=== PATIENT | female | born 1990 | race Caucasian/White ===

== ENCOUNTER 2024-11-30 16:07 | Emergency (ER) | payer OTHER, SELFPAY ==
[2024-11-30 16:08] VITALS: BP 123/88
[2024-11-30 17:10] LABS: Hematocrit 37.1 % (37.0-47.0); Hemoglobin 12.0 g/dL (12.0-16.0); Mean Corp Hgb Conc. 32.3 g/dL (33.0-37.0); Mean Corpuscular Volume 84.7 fL (81.0-99.0); Nucleated Red Blood Cells % 0 %; Platelet Count 287 10^3/uL (130-400); Red Cell Dist. Width 13.1 % (11.5-14.5)
[2024-11-30] MEDS: NSS 1000 IV (17:34)
[2024-11-30 17:38] LABS: HCG, Serum Qualitative Screen Negative
[2024-11-30 17:41] LABS: ALT (SGPT) 15 U/L (0-35); AST (SGOT) 18 U/L (14-36); Albumin 4.5 g/dl (3.5-5.0); Alkaline Phosphatase 52 U/L (38-126); Blood Urea Nitrogen 14 mg/dl (7-17); Calcium 9.8 mg/dl (8.4-10.2); Carbon Dioxide 25 mmol/L (22-30); Chloride 105 mmol/L (98-107); Glucose 106 mg/dl (70-99); Lipase 88 U/L (23-300); Potassium 4.0 mmol/L (3.5-5.1); Sodium 135 mmol/L (135-145); Total Protein 7.4 g/dl (6.3-8.2); eGFR > 60.00
[2024-11-30 18:01] LABS: Urine Character Slightly Cloudy (Clear)
[2024-11-30] MEDS: ZOFRAN 4 MG IV (18:45)
[2024-11-30 19:15] LABS: Urine Red Blood Cell 0-2 /HPF (0-2); Urine Squamous Cell >30 /LPF (Few); Urine White Cell 0-2 /HPF (0-5)
[2024-11-30] MEDS: TORADOL 15 MG IV (19:43)
--- NOTE | 2024-11-30 20:29 | ED.GENMED ---
History of Present Illness
General
Chief Complaint: Abdominal Symptoms
Source: patient
Exam Limitations: none
Time Seen by Provider: 11/30/24 17:20
History of Present Illness
History of Present Illness:
Patient with 2 complaints. She started with posterior neck pain 2 weeks ago. Nontraumatic. Not associated with nausea or vomiting. Some posterior headache with this. She had no trauma at that time. No whiplash injury. No chiropractic
manipulation. No distal numbness tingling weakness or disequilibrium. Over the last week she has developed GI symptoms including nausea vomiting and diarrhea. She denies severe abdominal pain. No unusual exposure or travel history. No recent
antibiotics.
Past History
Past History
ED Past Medical History: Psychiatric (Anxiety/depression)
ED Past Surgical History: Other ([place] teeth)
Social History
Living: with family
Review of Systems
Review of Systems
Constitutional: Denies fever
Respiratory: Reports no symptoms
Cardiac: Reports no symptoms
Phy Exam
Physical Exam
Physical Exam:
GENERAL: Alert and oriented in no apparent distress
EYE: Orbits normal.
NECK: Supple, no obvious paracervical tenderness. No spinal tenderness. No swelling. No carotid bruit.
ENT: Pharynx without erythema
CARDIAC: Regular rate and rhythm without any obvious murmurs.
LUNGS: Clear breath sounds,normal
ABDOMEN: Soft, minimal epigastric tenderness. No rebound or guarding no mass or hernia
NEUROLOGICAL: Alert and oriented , speech normal. No facial droop. Good range of motion of the neck. Good upper and lower extremity strength.
SKIN: Warm and dry, no rash or lesion, no discoloration, skin intact.
MUSCULOSKELETAL: No edema,no deformity.Good color
PSYCH: Normal and appropriate interaction.
Course
Orders/Labs/Results
Orders:
Orders
11/30/24 17:01
Test Result ONCE
11/30/24 17:03
Complete Blood Count/With Diff Urgent
Comprehensive Metabolic Panel Urgent
HCG, Serum Qualitative Screen Urgent
Comment: Notify provider if positive test present
Lipase Urgent
Urinalysis Reflex To Culture Urgent
Date Specimen was Collected: 11/30/24
Time Specimen was Collected: 17:01
Urine Microscopic Reflex Cult Urgent
11/30/24 17:31
CT Abd/Pel (IV only)-DH only Urgent
Comment:
Reason For Exam: Abdominal pain nausea vomiting
11/30/24 17:32
CT Head W/o Iv Contrast Urgent
Comment:
Reason For Exam: Headache neck pain nausea vomiting
0.9% Sodium Chloride 1000 ml [Nss] 1,000 ml IV BOLUS
11/30/24 18:17
Electrocardiogram (*1) Stat
Reason for Study: Abdominal Pain
EKG- Treatment ONCE
11/30/24 18:33
Ondansetron Injectable [Zofran] 4 mg IV NOW STA
11/30/24 19:24
CT Cervical Spine W/o Iv Contr Urgent
Comment:
Reason For Exam: Posterior neck pain
Ketorolac [Toradol] 15 mg IV NOW STA
Abnormal Lab Results
11/30/24
17:03
WBC 11.2 H 10^3/uL
(4.8-10.8)
MCHC 32.3 L g/dL
(33.0-37.0)
MPV 11.0 H fL
(7.4-10.4)
Absolute Neuts (auto) 8.9 H 10^3/uL
(1.4-6.5)
Neutrophils % 79.6 H %
(42.2-75.2)
Lymphocytes % 14.5 L %
(20.5-51.1)
Glucose 106 H mg/dl
(70-99)
Urine Ketones 3+ A
(Negative)
Ur Occult Blood Reflex 1+ A
(Negative)
Urine Bacteria (Reflex) Few A
(Negative)
Urine Albumin (Reflex) 1+ A
(Neg - Trace)
11/30/24 17:03
11/30/24 17:03
Vital Signs
Initial and Last Documented VS:
Initial Vital Signs
Temp Pulse Resp BP Pulse Ox
98.3 F 83 20 123/88 98
11/30/24 16:08 11/30/24 16:08 11/30/24 16:08 11/30/24 16:08 11/30/24 16:08
Last Documented Vital Signs
Temp Pulse Resp BP Pulse Ox
98.3 F 83 20 123/88 98
11/30/24 16:08 11/30/24 16:08 11/30/24 16:08 11/30/24 16:08 11/30/24 16:08
MDM/Problems Addressed
Differential Diagnosis Includes:
I cannot put her posterior neck symptoms together with her abdominal symptoms. She is not describing anything that would be suspicious of her vertebral dissection or thrombus. She has no acute neurologic symptoms no disequilibrium no gait issues
no nystagmus no trauma. She has multiple degenerative changes and some spinal canal stenosis by CT. She is clinically very stable and nontoxic. Her abdominal workup is unremarkable except for mild colitis. Symptomatic treatment stool culture and
follow-up
*Radiology
Radiology exam reviewed: radiology read reviewed (Colitis. Degenerative changes and spinal stenosis and foraminal narrowing at various levels by CT)
*Pulse Oximetry
SaO2: 98
Oxygen Mode of Delivery: Room air
Patient hypoxic: no
*EKG
Interpreted by ED Provider?: Yes
Interpretation: normal
Comparison EKG: no comparison EKG present
Heart Rate: 69
Rate: normal
Rhythm: sinus
Jackman: normal axis
Interval: normal interval
QRS Pattern: normal QRS
Ischemia: no ischemia
*Critical Care Note
Total Time (30-74mins, 75-104mins- exclusive of procedures): Not Applicable
ED Attending Note
-
Portions of this chart may have been created with voice recognition software.� Occasional wrong word or��sound alike� substitutions may have occurred due to the inherent limitations of voice recognition software.
Discharge Plan
Departure
Patient Disposition: Home (Routine Discharge)
Date of Disposition: 11/30/24
Time of Disposition: 20:34
Patient with high blood pressure during this ER visit?: Yes
Discharge Problem:
Posterior neck pain, Cervical degenerative changes, Central canal stenosis cervical, C3-C4 foraminal narrowing, Colitis
Instructions: Colitis (DC), Neck pain - ED (DC), BLOOD PRESSURE
Prescriptions:
New
ondansetron 4 mg tablet,disintegrating
4 mg PO TIDPRN PRN (Reason: nausea/vomiting) Qty: 14 0RF
No Action
phenazopyridine 200 MG tablet
200 mg PO TID Qty: 6 0RF
sulfamethoxazole-trimethoprim 800 MG/160 MG tablet
1 tab PO BID Qty: 14 0RF
Referrals:
NONE,* [Family Provider, Internal Medicine]
Marck Hernandez MD [Active, Orthopedics] - Follow up in 5-7 days
Activity Restrictions/Additional Instructions:
A prescription for your nausea medication was sent to your pharmacy
Advil or Motrin for pain you can also add Tylenol
Light diet
Follow-up closely with your primary physician. Also follow-up the stool culture
Return sooner with increased pain vomiting increased neck pain numbness tingling weakness fever or any other concerning symptoms
Interventions
Interventions:
*Risk Screen - Suicide Last Done: 11/30/24 16:08
*General Assessment Last Done: 11/30/24 16:08
*Neglect/Abuse Screening Last Done: 11/30/24 16:08
[facility] Assessment Last Done: 11/30/24 17:01
Discharge Date and Time
Print Language: SETSWANA
== END 2024-11-30 21:05 | disposition home or self-care (01) ==
LOC: EMR 16:07
PROVIDERS: EMERGENCY PHYSICIAN Emergency Medicine
DX: M47.812 Spondylosis without myelopathy or radiculopathy, cervical region (principal); M48.02 Spinal stenosis, cervical region; K52.9 Noninfective gastroenteritis and colitis, unspecified; F41.9 Anxiety disorder, unspecified; F32.A Depression, unspecified
CPT/HCPCS: 99284; 96374; 96375; 96361; 70450; 72125; 74177; 80053; 81003; 81015; 83690; 84703; 85025; 87045; 87046; 87324; 87427; 87449; 93005; Q9967